=== PATIENT | male | born 1970 | race Hispanic/Latino ===

== ENCOUNTER 2016-10-18 19:22 | Emergency (ER) | payer BC | END 2016-10-18 19:44 | disposition home or self-care (01) | LOC: BURERS 19:22 | DX: S83.92XA Sprain of unspecified site of left knee, initial encounter (principal); W17.2XXA Fall into hole, initial encounter; F17.210 Nicotine dependence, cigarettes, uncomplicated | CPT/HCPCS: 99283 ==